=== PATIENT | female | born 1980 | race Caucasian/White ===

== ENCOUNTER 2019-04-15 14:33 | Emergency (ER) | payer OTHER, MEDICAID, SELFPAY ==
[2019-04-15 14:41] VITALS: BP 169/78; PULSE 110; RESP 18; TEMP 36; O2SAT 100; BMI 41.9
--- NOTE | 2019-04-15 14:49 | ED.ABDPAIN ---
HPI - Abdominal Pain <Brenda Roa PA-C - Last Filed: 04/15/19 21:19> General Chief Complaint: Abdominal Pain Stated Complaint: pain upper right abdomen Time Seen by Provider: 04/15/19 14:49 Source: patient Mode of arrival: ambulatory Limitations: no limitations History of Present Illness HPI narrative: This 39-year-old female comes to ED secondary to worsening right upper quadrant pain. She states that this started about 10 days ago. Pain is worse with any kind of food, even bland diet. She states that she can tolerate water and fluids. She states that pain especially worse after greasy or fatty foods or spicy foods, somewhat better on an empty stomach, no exacerbating or alleviating features other than this. She states that pain is mainly in the white upper quadrant but can feel it a little bit in the mid abdomen and flank area as well. She states she has had nausea, no vomiting in the last couple of days. She denies any new symptoms today such as fever, hematuria or urinary symptoms, bowel habit changes or blood in the stools. She denies chest pain or dyspnea. She has some chronic pain in the extremities and states that her left knee red swollen recently. She was seen at another local emergency department a week ago and states she had lab work and ultrasound which showed gallstones and inflammation and was told she probably needs surgery and to return if acutely worse. She has not been able to see her PCP who moved out of the area and decided to come to this ED today. Related Data Home Medications Medication Instructions Recorded Confirmed hydrocodone-acetaminophen 04/15/19 naproxen 375 mg PO BID 04/15/19 04/15/19 ondansetron 04/15/19 Previous Rx's Medication Instructions Recorded ondansetron 4 mg PO Q8HR PRN #7 tab 04/15/19 Allergies Allergy/AdvReac Type Severity Reaction Status Date / Time mushroom [MUSHROOM] Allergy Intermediate Unverified 03/11/18 12:52 Penicillins [PENICILLINS] Allergy Intermediate Unverified 03/11/18 12:52 prednisone [PREDNISONE] Allergy Intermediate Unverified 03/11/18 12:52 sumatriptan [From IMITREX] Allergy Intermediate Unverified 03/11/18 12:52 Review of Systems <Brenda Roa PA-C - Last Filed: 05/16/19 21:19> Review of Systems ROS Unobtainable: All systems reviewed & are unremarkable except as noted in HPI and below PFSH <Brenda Roa PA-C - Last Filed: 04/15/19 21:19> Medical History (Updated 04/15/19 @ 18:31 by Brenda Roa PA-C) Chronic upper extremity pain (Chronic) Chronic pain of lower extremity, bilateral (Chronic) Surgical History (Updated 04/15/19 @ 15:40 by Brenda Roa PA-C) No history of previous surgery (Chronic) Social History Smoking Status: Current every day smoker Social History Smoking Status: Current every day smoker Exam <Brenda Roa PA-C - Last Filed: 04/15/19 21:19> Narrative Exam Narrative: GENERAL APPEARANCE: Patient sitting comfortably, in no distress. HEENT: PERRL, EOMI, no scleral icterus NECK: Supple LUNGS: Clear to auscultation bilaterally. HEART: Rate and rhythm regular, normal S1 and S2, no S3 or S4. ABDOMEN: Soft, nondistended, bowel sounds present x 4 quadrants, no masses palpable, no hepatosplenomegaly. Exquisite right upper quadrant tenderness with positive Gonzalez sign, no guarding or rebound. Mild right midline tenderness and right CVAT, minimal tenderness elsewhere through the abdomen. EXTREMITIES: No edema, no calf tenderness DERMATOLOGIC: No jaundice or exanthem NEUROLOGIC: Alert and oriented with normal speech and coordination Initial Vital Signs Initial Vital Signs: Vital Signs Temperature 96.8 F L 04/15/19 14:41 Pulse Rate 110 H 04/15/19 14:41 Respiratory Rate 18 04/15/19 14:41 Blood Pressure 169/78 H 04/15/19 14:41 Pulse Oximetry 100 04/15/19 14:41 <Elayne Pascual DO - Last Filed: 04/16/19 08:31> Initial Vital Signs Initial Vital Signs: Vital Signs Temperature 96.8 F L 04/15/19 14:41 Pulse Rate 110 H 04/15/19 14:41 Respiratory Rate 18 04/15/19 14:41 Blood Pressure 169/78 H 04/15/19 14:41 Pulse Oximetry 100 04/15/19 14:41 Course <Brenda Roa PA-C - Last Filed: 04/15/19 21:19> Additional Information: There are no acute findings on patient's lab work, ultrasound or CT to explain symptoms. I later received records from [facility] which not show acute findings on ultrasound or lab, still advised further workup and for gallbladder disease. Advised patient given her description of symptoms, I agree with this plan. Advised follow-up with PCP for further workup and referral, and she has agreed well. Advised return if acutely worsening symptoms again. Advised on diet. She did request a sandwich before she left, and again advised on brat diet and to avoid fatty foods. Orders Ordered: Discontinued Medications Sodium Chloride (Normal Saline 0.9%) 500 mls @ 1,000 mls/hr IV BOLUS ONE Stop: 04/15/19 15:32 Last Infusion: 04/15/19 16:02 Dose: 0 mls/hr Admin: 04/15/19 15:11 Dose: 1,000 mls/hr Ketorolac Tromethamine (Toradol) 30 mg IV NOW ONE Stop: 04/15/19 15:04 Last Admin: 04/15/19 15:12 Dose: 30 mg Ondansetron HCl (Zofran) 4 mg IV NOW ONE Stop: 04/15/19 15:04 Last Admin: 04/15/19 15:12 Dose: 4 mg Pantoprazole Sodium (Protonix) 40 mg IV NOW ONE Stop: 04/15/19 15:04 Last Admin: 04/15/19 15:12 Dose: 40 mg Vital Signs - 8 hr 04/15/19 14:41 04/15/19 18:28 Temperature 96.8 F L Pulse Rate 110 H 94 H Respiratory Rate 18 16 Blood Pressure 169/78 H Blood Pressure [Left Arm] 134/73 Pulse Oximetry 100 98 <Elayne Pascual DO - Last Filed: 04/16/19 08:31> Orders Ordered: Discontinued Medications Sodium Chloride (Normal Saline 0.9%) 500 mls @ 1,000 mls/hr IV BOLUS ONE Stop: 04/15/19 15:32 Last Infusion: 04/15/19 16:02 Dose: 0 mls/hr Admin: 04/15/19 15:11 Dose: 1,000 mls/hr Ketorolac Tromethamine (Toradol) 30 mg IV NOW ONE Stop: 04/15/19 15:04 Last Admin: 04/15/19 15:12 Dose: 30 mg Ondansetron HCl (Zofran) 4 mg IV NOW ONE Stop: 04/15/19 15:04 Last Admin: 04/15/19 15:12 Dose: 4 mg Pantoprazole Sodium (Protonix) 40 mg IV NOW ONE Stop: 04/15/19 15:04 Last Admin: 04/15/19 15:12 Dose: 40 mg Vital Signs - 8 hr 04/15/19 14:41 04/15/19 18:28 Temperature 96.8 F L Pulse Rate 110 H 94 H Respiratory Rate 18 16 Blood Pressure 169/78 H Blood Pressure [Left Arm] 134/73 Pulse Oximetry 100 98 MDM - Abdominal Pain <Brenda Roa PA-C - Last Filed: 04/15/19 21:19> Medical Records Attestation: I reviewed the patient's medical records. Lab Data Attestation: I reviewed the patient's lab results. Result diagrams: 04/15/19 15:27 04/15/19 15:27 Lab Results 04/15/19 04/15/19 Range/Units 15:27 15:27 WBC 7.2 (4.5-11.0) X10^3/uL RBC 5.08 (4.0-5.2) X10^6/uL Hgb 10.3 L (12.0-16.0) g/dL Hct 33.5 L (36-46) % MCV 66.0 L (80-100) fL MCH 20.2 L (26-34) PG MCHC 30.6 (30-36) % RDW 17.9 H (11.6-14.8) % Plt Count 355 (150-400) X10^3/uL Neut % (Auto) 63.0 (50-75) % Lymph % (Auto) 27.0 (25-40) % [place] % (Auto) 5.5 (3-14) % Eos % (Auto) 3.4 (2-4) % Baso % (Auto) 1.1 (0-2) % Neut # (Auto) 4500 (8987-3901) /uL Lymph # (Auto) 1900 (9440-6149) /uL [place] # (Auto) 400 (0-900) /uL Eos # (Auto) 200 (0-450) /uL Baso # (Auto) 100 (0-100) /uL RBC Morphology Not Reportable Hypochromasia 1+ H Microcytosis 2+ H Sodium 136 L (137-145) mmol/L Potassium 3.7 (3.4-5.1) mmol/L Chloride 100 (98-107) mmol/L Carbon Dioxide 23 (22-32) mmol/L BUN 10 (7-17) mg/dL Creatinine 0.60 (0.52-1.04) mg/dL Estimated GFR > 60.0 (>60) mL/min BUN/Creatinine Ratio 16.7 (6-22) Glucose 108 H (70-100) mg/dL Calcium 8.9 (8.4-10.2) mg/dL Total Bilirubin 0.3 (0.2-1.3) mg/dL AST 21 (14-36) IU/L ALT 29 (9-52) IU/L Alkaline Phosphatase 107 (38-126) U/L Total Protein 7.6 (6.3-8.2) g/dL Albumin 4.0 (3.5-5.0) g/dL Globulin 3.6 (1.7-4.1) g/dL Albumin/Globulin Ratio 1.1 (1.0-2.8) Lipase 36 (23-300) U/L Point of care testing: Point of Care Testing Test Results Negative Urine Dip Bedside Urine Glucose Negative Bedside Urine Bilirubin - Negative Bedside Urine Ketone - Negative Urine Specific [place] 1.015 Bedside Urine Occult Blood - Negative Bedside Urine pH 6.5 Bedside Urine Protein - Negative Bedside Urine Urobilinogen - Negative Bedside Urine Nitrite - Negative Bedside Urine Leukocytes - Negative Esterase Imaging Data US - abdomen: Radiologist's impression: [place] [address] Ultrasound Report Signed Patient: Tavia Oneal EMR#: [id number] : 1980Acct:[id number] Age/Sex: 39 / FDate of Service: 04/15/19 Loc: ED Accession Number: [id number] Procedure: US abdomen limited Ordering Provider: Brenda Roa P.A-C PROCEDURE: US ABDOMEN LIMITED INDICATIONS: GALLSTONES, RUQ PAIN, WORSENING TECHNIQUE: Real-time focused scanning was performed of the abdomen, with image documentation. COMPARISON: None. FINDINGS: Liver measures 19.4 cm in length. Increased liver parenchymal echotexture is seen. No discrete hepatic lesion is noted. There is no gallstone. No gallbladder wall thickening or pericholecystic fluid. No sonographic Gonzalez sign. There is no biliary ductal dilatation. Common bile duct measures 4.7 mm in diameter and is within normal limits. The visualized portion of pancreas shows no gross ovale. IMPRESSION: Hepatic steatosis. No discrete hepatic lesion. No gallstone. No sonographic evidence of acute cholecystitis. No biliary ductal dilatation. The Dictated by: Devan Huff M.D. on 04/15/2019 at 16:22 Approved by: Devan Huff M.D. on 04/15/2019 at 16:23 CT scan - abdomen: Radiologist's impression: [place] [address] CT Scan Report Signed Patient: Tavia Oneal EMR#: [id number] : 1980Acct:[id number] Age/Sex: 39 / FDate of Service: 04/15/19 Loc: ED Accession Number: [id number] Procedure: CT abdomen pelvis w con Ordering Provider: Brenda Roa P.A-C PROCEDURE: CT ABDOMEN PELVIS W CON INDICATIONS: R. UQ Post prandial pain, nl US TECHNIQUE: After the administration of intravenous contrast, 5 mm thick sections acquired from the diaphragm to the symphysis. 5 mm coronal and sagittal reformats were acquired. For radiation dose reduction, the following was used: automated exposure control, adjustment of mA and/or kV according to patient size. COMPARISON: None. FINDINGS: Image quality: Excellent. ABDOMEN: Lung bases: Lung bases are clear. Heart size is normal. Solid organs: Liver is normal in size and enhancement. Extensive hepatic steatosis is seen, no discrete lesion. Gallbladder is within normal limits. Biliary system is non dilated. Pancreas enhances normally. Spleen is normal in size and enhancement. No adrenal nodules. Kidneys demonstrate normal size and enhancement, without hydronephrosis. 5 x 2 mm nonobstructing stone in the midpole of the left kidney is seen. Peritoneum and bowel: Bowel loops demonstrate normal wall thickness and caliber. No free fluid or air. Extensive colonic diverticulosis is seen, no CT evidence of acute diverticulitis. Nodes and vessels: Mildly prominent retroperitoneal lymph nodes are seen measures up to 1 cm in short axis diameter a left periaortic space. Borderline prominent in lymph nodes along bilateral iliac chain are also seen and measures up to 1.4 cm in short axis diameter anterior to right external iliac artery. Aorta and inferior vena cava are normal in size. Miscellaneous: No ventral hernias. PELVIS: Genitourinary: Questionable diffuse bladder wall thickening is seen. No discrete bladder wall mass. Miscellaneous: No inguinal hernias or adenopathy. Subcentimeter lymph nodes are seen in bilateral inguinal region measures up to 6 mm in short axis diameter. Bones: No suspicious bony lesions. No vertebral body compression fractures. IMPRESSION: 1. Hepatic steatosis. No discrete hepatic lesion. 2. Nonobstructing stone in left kidney. No hydronephrosis. 3. No bowel obstruction. No free fluid or free air. Colonic diverticulosis with no CT evidence of acute diverticulitis. 4. Nonspecific mildly enlarged periaortic lymph nodes and bilateral iliac chain nodes. Dictated by: Devan Huff M.D. on 04/15/2019 at 17:35 Approved by: Devan Huff M.D. on 04/15/2019 at 17:42 <Elayne Pascual DO - Last Filed: 04/16/19 08:31> Lab Data Attestation: I reviewed the patient's lab results. Lab Results 04/15/19 04/15/19 Range/Units 15:27 15:27 WBC 7.2 (4.5-11.0) X10^3/uL RBC 5.08 (4.0-5.2) X10^6/uL Hgb 10.3 L (12.0-16.0) g/dL Hct 33.5 L (36-46) % MCV 66.0 L (80-100) fL MCH 20.2 L (26-34) PG MCHC 30.6 (30-36) % RDW 17.9 H (11.6-14.8) % Plt Count 355 (150-400) X10^3/uL Neut % (Auto) 63.0 (50-75) % Lymph % (Auto) 27.0 (25-40) % [place] % (Auto) 5.5 (3-14) % Eos % (Auto) 3.4 (2-4) % Baso % (Auto) 1.1 (0-2) % Neut # (Auto) 4500 (1916-1634) /uL Lymph # (Auto) 1900 (5650-9496) /uL [place] # (Auto) 400 (0-900) /uL Eos # (Auto) 200 (0-450) /uL Baso # (Auto) 100 (0-100) /uL RBC Morphology Not Reportable Hypochromasia 1+ H Microcytosis 2+ H Sodium 136 L (137-145) mmol/L Potassium 3.7 (3.4-5.1) mmol/L Chloride 100 (98-107) mmol/L Carbon Dioxide 23 (22-32) mmol/L BUN 10 (7-17) mg/dL Creatinine 0.60 (0.52-1.04) mg/dL Estimated GFR > 60.0 (>60) mL/min BUN/Creatinine Ratio 16.7 (6-22) Glucose 108 H (70-100) mg/dL Calcium 8.9 (8.4-10.2) mg/dL Total Bilirubin 0.3 (0.2-1.3) mg/dL AST 21 (14-36) IU/L ALT 29 (9-52) IU/L Alkaline Phosphatase 107 (38-126) U/L Total Protein 7.6 (6.3-8.2) g/dL Albumin 4.0 (3.5-5.0) g/dL Globulin 3.6 (1.7-4.1) g/dL Albumin/Globulin Ratio 1.1 (1.0-2.8) Lipase 36 (23-300) U/L Point of care testing: Point of Care Testing Test Results Negative Urine Dip Bedside Urine Glucose Negative Bedside Urine Bilirubin - Negative Bedside Urine Ketone - Negative Urine Specific [place] 1.015 Bedside Urine Occult Blood - Negative Bedside Urine pH 6.5 Bedside Urine Protein - Negative Bedside Urine Urobilinogen - Negative Bedside Urine Nitrite - Negative Bedside Urine Leukocytes - Negative Esterase Discharge Plan Departure Patient Disposition: Home Clinical Impression: Abdominal pain Qualifiers: Abdominal location: right upper quadrant Qualified Code(s): R10.11 - Right upper quadrant pain Discharge Date/Time: 04/15/19 18:40 Interventions: ED Discharge Assessment Last Done: 04/15/19 18:39 Instructions: DI for Abdominal Pain-Adult Activity Restrictions/Additional Instructions: Please return to the closest ED if you have any acutely worsening symptoms again as we talked about. Your lab work and radiology studies did not show any acute findings today. Otherwise, please take [id number] pain medicine as needed, take the antinausea medicine that you have been on as you need (I have given you a prescription for a little bit more if you need to fill it). Drink clear fluids, and remember to eat small amounts of bland food frequently to help with the nausea. Try bananas, applesauce, steamed white rice. Call your PCP office tomorrow for follow-up in let them know you have been seen in the ED twice and requested you be seen for follow-up tomorrow for abdominal pain as you may need referral to a specialist for more definitive testing. Prescriptions: New ondansetron 4 mg tablet,disintegrating 4 mg PO Q8HR PRN (Reason: nausea and vomiting) Qty: 7 RF: 0 No Action hydrocodone-acetaminophen 5-325 mg tablet RF: 0 naproxen 375 mg tablet 375 mg PO BID RF: 0 ondansetron 4 mg tablet,disintegrating RF: 0 Referrals: [facility], Don Chung [Other] <Elayen Pascual DO - Last Filed: 04/16/19 08:31> [facility] ED Attending Jack[place] Attestation: I was immediately available in the department for consultation. Documentation has been reviewed. I agree with assessment and plan.
--- NOTE | 2019-04-15 15:04 | DI.US.S_ITS ---
PROCEDURE: US ABDOMEN LIMITED INDICATIONS: GALLSTONES, RUQ PAIN, WORSENING TECHNIQUE: Real-time focused scanning was performed of the abdomen, with image documentation. COMPARISON: None. FINDINGS: Liver measures 19.4 cm in length. Increased liver parenchymal echotexture is seen. No discrete hepatic lesion is noted. There is no gallstone. No gallbladder wall thickening or pericholecystic fluid. No sonographic Gonzalez sign. There is no biliary ductal dilatation. Common bile duct measures 4.7 mm in diameter and is within normal limits. The visualized portion of pancreas shows no gross ovale. IMPRESSION: Hepatic steatosis. No discrete hepatic lesion. No gallstone. No sonographic evidence of acute cholecystitis. No biliary ductal dilatation. The Dictated by: Devan Huff M.D. on 04/15/2019 at 16:22 Approved by: Devan Huff M.D. on 04/15/2019 at 16:23
[2019-04-15] MEDS: SODIUM CHLORIDE 0.9% 500 ML 1000 ML IV (15:11)
[2019-04-15] MEDS: ONDANSETRON 4 MG/2 ML INJ IV (15:12)
[2019-04-15] MEDS: KETOROLAC 60 MG/2 ML VIAL 30 MG IV (15:12)
[2019-04-15] MEDS: PANTOPRAZOLE 40 MG VIAL IV (15:12)
--- NOTE | 2019-04-15 15:12 | ED_ITS ---
HPI - Abdominal Pain <Brenda Roa PA-C - Last Filed: 04/15/19 21:19> General Chief Complaint: Abdominal Pain Stated Complaint: pain upper right abdomen Time Seen by Provider: 04/15/19 14:49 Source: patient Mode of arrival: ambulatory Limitations: no limitations History of Present Illness HPI narrative: This 39-year-old female comes to ED secondary to worsening right upper quadrant pain. She states that this started about 10 days ago. Pain is worse with any kind of food, even bland diet. She states that she can tolerate water and fluids. She states that pain especially worse after greasy or fatty foods or spicy foods, somewhat better on an empty stomach, no exacerbating or al leviating features other than this. She states that pain is mainly in the white upper quadrant but can feel it a little bit in the mid abdomen and flank area as well. She states she has had nausea, no vomiting in the last couple of days. She denies any new symptoms today such as fever, hematuria or urinary symptoms, bowel habit changes or blood in the stools. She denies chest pain or dyspnea. She has some chronic pain in the extremities and states that her left knee red swollen recently. She was seen at another local emergency department a week ago and states she had lab work and ultrasound which showed gallstones and inflammation and was told she probably needs surgery and to return if acutely worse. She has not been able to see her PCP who moved out of the area and decided to come to this ED today. Related Data Home Medications Medication Instructions Recorded Confirmed hydrocodone-acetaminophen 04/15/19 naproxen 375 mg PO BID 04/15/19 04/15/19 ondansetron 04/15/19 Previous Rx's Medication Instructions Recorded ondansetron 4 mg PO Q8HR PRN #7 tab 04/15/19 Allergies Allergy/AdvReac Type Severity Reaction Status Date / Time mushroom [MUSHROOM] Allergy Intermediate Unverified 03/11/18 12:52 Penicillins [PENICILLINS] Allergy Intermediate Unverified 03/11/18 12:52 prednisone [PREDNISONE] Allergy Intermediate Unverified 03/11/18 12:52 sumatriptan [From IMITREX] Allergy Intermediate Unverified 03/11/18 12:52 Review of Systems <Brenda Roa PA-C - Last Filed: 04/15/19 21:19> Review of Systems ROS Unobtainable: All systems reviewed & are unremarkable except as noted in HPI and below PFSH <Brenda Roa PA-C - Last Filed: 04/15/19 21:19> Medical History (Updated 04/15/19 @ 18:31 by Brenda Roa PA-C) Chronic upper extremity pain (Chronic) Chronic pain of lower extremity, bilateral (Chronic) Surgical History (Updated 04/15/19 @ 15:40 by Brenda Roa PA-C) No history of previous surgery (Chronic) Social History Smoking Status: Current every day smoker Social History Smoking Status: Current every day smoker Exam <Brenda Roa PA-C - Last Filed: 04/15/19 21:19> Narrative Exam Narrative: GENERAL APPEARANCE: Patient sitting comfortably, in no distress. HEENT: PERRL, EOMI, no scleral icterus NECK: Supple LUNGS: Clear to auscultation bilaterally. HEART: Rate and rhythm regular, normal S1 and S2, no S3 or S4. ABDOMEN: Soft, nondistended, bowel sounds present x 4 quadrants, no masses palpable, no hepatosplenomegaly. Exquisite right upper quadrant tenderness with positive Gonzalez sign, no guarding or rebound. Mild right midline tenderness and right CVAT, minimal tenderness elsewhere through the abdomen. EXTREMITIES: No edema, no calf tenderness DERMATOLOGIC: No jaundice or exanthem NEUROLOGIC: Alert and oriented with normal speech and coordination Initial Vital Signs Initial Vital Signs: Vital Signs Temperature 96.8 F L 04/15/19 14:41 Pulse Rate 110 H 04/15/19 14:41 Respiratory Rate 18 04/15/19 14:41 Blood Pressure 169/78 H 04/15/19 14:41 Pulse Oximetry 100 04/15/19 14:41 <Elayne Pascual DO - Last Filed: 04/16/19 08:31> Initial Vital Signs Initial Vital Signs: Vital Signs Temperature 96.8 F L 04/15/19 14:41 Pulse Rate 110 H 04/15/19 14:41 Respiratory Rate 18 04/15/19 14:41 Blood Pressure 169/78 H 04/15/19 14:41 Pulse Oximetry 100 04/15/19 14:41 Course <Brenda Roa PA-C - Last Filed: 04/15/19 21:19> Additional Information: There are no acute findings on patient's lab work, ultrasound or CT to explain symptoms. I later received records from [facility] which not show acute findings on ultrasound or lab, still advised further workup and for gallbladder disease. Advised patient given her description of symptoms, I agree with this plan. Advised follow-up with PCP for further workup and referral, and she has agreed well. Advised return if acutely worsening symptoms again. Advised on diet. She did request a sandwich before she left, and again advised on brat diet and to avoid fatty foods. Orders Ordered: Discontinued Medications Sodium Chloride (Normal Saline 0.9%) 500 mls @ 1,000 mls/hr IV BOLUS ONE Stop: 04/15/19 15:32 Last Infusion: 04/15/19 16:02 Dose: 0 mls/hr Admin: 04/15/19 15:11 Dose: 1,000 mls/hr Ketorolac Tromethamine (Toradol) 30 mg IV NOW ONE Stop: 04/15/19 15:04 Last Admin: 04/15/19 15:12 Dose: 30 mg Ondansetron HCl (Zofran) 4 mg IV NOW ONE Stop: 04/15/19 15:04 Last Admin: 04/15/19 15:12 Dose: 4 mg Pantoprazole Sodium (Protonix) 40 mg IV NOW ONE Stop: 04/15/19 15:04 Last Admin: 04/15/19 15:12 Dose: 40 mg Vital Signs - 8 hr 04/15/19 14:41 04/15/19 18:28 Temperature 96.8 F L Pulse Rate 110 H 94 H Respiratory Rate 18 16 Blood Pressure 169/78 H Blood Pressure [Left Arm] 134/73 Pulse Oximetry 100 98 <Elayne Pascual DO - Last Filed: 04/16/19 08:31> Orders Ordered: Discontinued Medications Sodium Chloride (Normal Saline 0.9%) 500 mls @ 1,000 mls/hr IV BOLUS ONE Stop: 04/15/19 15:32 Last Infusion: 04/15/19 16:02 Dose: 0 mls/hr Admin: 04/15/19 15:11 Dose: 1,000 mls/hr Ketorolac Tromethamine (Toradol) 30 mg IV NOW ONE Stop: 04/15/19 15:04 Last Admin: 04/15/19 15:12 Dose: 30 mg Ondansetron HCl (Zofran) 4 mg IV NOW ONE Stop: 04/15/19 15:04 Last Admin: 04/15/19 15:12 Dose: 4 mg Pantoprazole Sodium (Protonix) 40 mg IV NOW ONE Stop: 04/15/19 15:04 Last Admin: 04/15/19 15:12 Dose: 40 mg Vital Signs - 8 hr 04/15/19 14:41 04/15/19 18:28 Temperature 96.8 F L Pulse Rate 110 H 94 H Respiratory Rate 18 16 Blood Pressure 169/78 H Blood Pressure [Left Arm] 134/73 Pulse Oximetry 100 98 MDM - Abdominal Pain <Brenda Roa PA-C - Last Filed: 04/15/19 21:19> Medical Records Attestation: I reviewed the patient's medical records. Lab Data Attestation: I reviewed the patient's lab results. Result diagrams: 04/15/19 15:27 04/15/19 15:27 Lab Results 04/15/19 04/15/19 Range/Units 15:27 15:27 WBC 7.2 (4.5-11.0) X10^3/uL RBC 5.08 (4.0-5.2) X10^6/uL Hgb 10.3 L (12.0-16.0) g/dL Hct 33.5 L (36-46) % MCV 66.0 L (80-100) fL MCH 20.2 L (26-34) PG MCHC 30.6 (30-36) % RDW 17.9 H (11.6-14.8) % Plt Count 355 (150-400) X10^3/uL Neut % (Auto) 63.0 (50-75) % Lymph % (Auto) 27.0 (25-40) % [place] % (Auto) 5.5 (3-14) % Eos % (Auto) 3.4 (2-4) % Baso % (Auto) 1.1 (0-2) % Neut # (Auto) 4500 (5798-4919) /uL Lymph # (Auto) 1900 (3370-8848) /uL [place] # (Auto) 400 (0-900) /uL Eos # (Auto) 200 (0-450) /uL Baso # (Auto) 100 (0-100) /uL RBC Morphology Not Reportable Hypochromasia 1+ H Microcytosis 2+ H Sodium 136 L (137-145) mmol/L Potassium 3.7 (3.4-5.1) mmol/L Chloride 100 (98-107) mmol/L Carbon Dioxide 23 (22-32) mmol/L BUN 10 (7-17) mg/dL Creatinine 0.60 (0.52-1.04) mg/dL Estimated GFR > 60.0 (>60) mL/min BUN/Creatinine Ratio 16.7 (6-22) Glucose 108 H (70-100) mg/dL Calcium 8.9 (8.4-10.2) mg/dL Total Bilirubin 0.3 (0.2-1.3) mg/dL AST 21 (14-36) IU/L ALT 29 (9-52) IU/L Alkaline Phosphatase 107 (38-126) U/L Total Protein 7.6 (6.3-8.2) g/dL Albumin 4.0 (3.5-5.0) g/dL Globulin 3.6 (1.7-4.1) g/dL Albumin/Globulin Ratio 1.1 (1.0-2.8) Lipase 36 (23-300) U/L Point of care testing: Point of Care Testing Test Results Negative Urine Dip Bedside Urine Glucose Negative Bedside Urine Bilirubin - Negative Bedside Urine Ketone - Negative Urine Specific [place] 1.015 Bedside Urine Occult Blood - Negative Bedside Urine pH 6.5 Bedside Urine Protein - Negative Bedside Urine Urobilinogen - Negative Bedside Urine Nitrite - Negative Bedside Urine Leukocytes - Negative Esterase Imaging Data US - abdomen: Radiologist's impression: [address] [address] Ultrasound Report Signed Patient: Tavia Oneal EMR#: [id number] : 1980Acct:[id number] Age/Sex: 39 / FDate of Service: 04/15/19 Loc: ED Accession Number: [id number] Procedure: US abdomen limited Ordering Provider: Brenda Roa P.A-C PROCEDURE: US ABDOMEN LIMITED INDICATIONS: GALLSTONES, RUQ PAIN, WORSENING TECHNIQUE: Real-time focused scanning was performed of the abdomen, with image documentation. COMPARISON: None. FINDINGS: Liver measures 19.4 cm in length. Increased liver parenchymal echotexture is seen. No discrete hepatic lesion is noted. There is no gallstone. No gallbladder wall thickening or pericholecystic fluid. No sonographic Gonzalez sign. There is no biliary ductal dilatation. Common bile duct measures 4.7 mm in diameter and is within normal limits. The visualized portion of pancreas shows no gross ovale. IMPRESSION: Hepatic steatosis. No discrete hepatic lesion. No gallstone. No sonographic evidence of acute cholecystitis. No biliary ductal dilatation. The Dictated by: Devan Huff M.D. on 04/15/2019 at 16:22 Approved by: Devan Huff M.D. on 04/15/2019 at 16:23 CT scan - abdomen: Radiologist's impression: [place] [address] CT Scan Report Signed Patient: Tavia Oneal EMR#: [id number] : 1980Acct:[id number] Age/Sex: 39 / FDate of Service: 04/15/19 Loc: ED Accession Number: [id number] Procedure: CT abdomen pelvis w con Ordering Provider: Brenda Roa P.A-C PROCEDURE: CT ABDOMEN PELVIS W CON INDICATIONS: R. UQ Post prandial pain, nl US TECHNIQUE: After the administration of intravenous contrast, 5 mm thick sections acquired from the diaphragm to the symphysis. 5 mm coronal and sagittal reformats were acquired. For radiation dose reduction, the following was used: automated exposure control, adjustment of mA and/or kV according to patient size. COMPARISON: None. FINDINGS: Image quality: Excellent. ABDOMEN: Lung bases: Lung bases are clear. Heart size is normal. Solid organs: Liver is normal in size and enhancement. Extensive hepatic steatosis is seen, no discrete lesion. Gallbladder is within normal limits. Biliary system is non dilated. Pancreas enhances normally. Spleen is normal in size and enhancement. No adrenal nodules. Kidneys demonstrate normal size and enhancement, without hydronephrosis. 5 x 2 mm nonobstructing stone in the midpole of the left kidney is seen. Peritoneum and bowel: Bowel loops demonstrate normal wall thickness and caliber. No free fluid or air. Extensive colonic diverticulosis is seen, no CT evidence of acute diverticulitis. Nodes and vessels: Mildly prominent retroperitoneal lymph nodes are seen stacy sures up to 1 cm in short axis diameter a left periaortic space. Borderline prominent in lymph nodes along bilateral iliac chain are also seen and measures up to 1.4 cm in short axis diameter anterior to right external iliac artery. Aorta and inferior vena cava are normal in size. Miscellaneous: No ventral hernias. PELVIS: Genitourinary: Questionable diffuse bladder wall thickening is seen. No discrete bladder wall mass. Miscellaneous: No inguinal hernias or adenopathy. Subcentimeter lymph nodes are seen in bilateral inguinal region measures up to 6 mm in short axis diameter. Bones: No suspicious bony lesions. No vertebral body compression fractures. IMPRESSION: 1. Hepatic steatosis. No discrete hepatic lesion. 2. Nonobstructing stone in left kidney. No hydronephrosis. 3. No bowel obstruction. No free fluid or free air. Colonic diverticulosis with no CT evidence of acute diverticulitis. 4. Nonspecific mildly enlarged periaortic lymph nodes and bilateral iliac chain nodes. Dictated by: Devan Huff M.D. on 04/15/2019 at 17:35 Approved by: Devan Huff M.D. on 04/15/2019 at 17:42 <Elayne Pascual DO - Last Filed: 04/16/19 08:31> Lab Data Attestation: I reviewed the patient's lab results. Lab Results 04/15/19 04/15/19 Range/Units 15:27 15:27 WBC 7.2 (4.5-11.0) X10^3/uL RBC 5.08 (4.0-5.2) X10^6/uL Hgb 10.3 L (12.0-16.0) g/dL Hct 33.5 L (36-46) % MCV 66.0 L (80-100) fL MCH 20.2 L (26-34) PG MCHC 30.6 (30-36) % RDW 17.9 H (11.6-14.8) % Plt Count 355 (150-400) X10^3/uL Neut % (Auto) 63.0 (50-75) % Lymph % (Auto) 27.0 (25-40) % [place] % (Auto) 5.5 (3-14) % Eos % (Auto) 3.4 (2-4) % Baso % (Auto) 1.1 (0-2) % Neut # (Auto) 4500 (0819-0262) /uL Lymph # (Auto) 1900 (2334-8197) /uL [place] # (Auto) 400 (0-900) /uL Eos # (Auto) 200 (0-450) /uL Baso # (Auto) 100 (0-100) /uL RBC Morphology Not Reportable Hypochromasia 1+ H Microcytosis 2+ H Sodium 136 L (137-145) mmol/L Potassium 3.7 (3.4-5.1) mmol/L Chloride 100 (98-107) mmol/L Carbon Dioxide 23 (22-32) mmol/L BUN 10 (7-17) mg/dL Creatinine 0.60 (0.52-1.04) mg/dL Estimated GFR > 60.0 (>60) mL/min BUN/Creatinine Ratio 16.7 (6-22) Glucose 108 H (70-100) mg/dL Calcium 8.9 (8.4-10.2) mg/dL Total Bilirubin 0.3 (0.2-1.3) mg/dL AST 21 (14-36) IU/L ALT 29 (9-52) IU/L Alkaline Phosphatase 107 (38-126) U/L Total Protein 7.6 (6.3-8.2) g/dL Albumin 4.0 (3.5-5.0) g/dL Globulin 3.6 (1.7-4.1) g/dL Albumin/Globulin Ratio 1.1 (1.0-2.8) Lipase 36 (23-300) U/L Point of care testing: Point of Care Testing Test Results Negative Urine Dip Bedside Urine Glucose Negative Bedside Urine Bilirubin - Negative Bedside Urine Ketone - Negative Urine Specific [place] 1.015 Bedside Urine Occult Blood - Negative Bedside Urine pH 6.5 Bedside Urine Protein - Negative Bedside Urine Urobilinogen - Negative Bedside Urine Nitrite - Negative Bedside Urine Leukocytes - Negative Esterase Discharge Plan Departure Patient Disposition: Home Clinical Impression: Abdominal pain Qualifiers: Abdominal location: right upper quadrant Qualified Code(s): R10.11 - Right upper quadrant pain Discharge Date/Time: 04/15/19 18:40 Interventions: ED Discharge Assessment Last Done: 04/15/19 18:39 Instructions: DI for Abdominal Pain-Adult Activity Restrictions/Additional Instructions: Please return to the closest ED if you have any acutely worsening symptoms again as we talked about. Your lab work and radiology studies did not show any acute findings today. Otherwise, please take [id number] pain medicine as needed, take the antinausea medicine that you have been on as you need (I have given you a prescription for a little bit more if you need to fill it). Drink clear fluids, and remember to eat small amounts of bland food frequently to help with the nausea. Try bananas, applesauce, steamed white rice. Call your PCP office tomorrow for follow-up in let them know you have been seen in the ED twice and requested you be seen for follow-up tomorrow for abdominal pain as you may need referral to a specialist for more definitive testing. Prescriptions: New ondansetron 4 mg tablet,disintegrating 4 mg PO Q8HR PRN (Reason: nausea and vomiting) Qty: 7 RF: 0 No Action hydrocodone-acetaminophen 5-325 mg tablet RF: 0 naproxen 375 mg tablet 375 mg PO BID RF: 0 ondansetron 4 mg tablet,disintegrating RF: 0 [facility] [Other] <Elayne Pascual, - Last Filed: 04/16/19 08:31> Cosign ED Attending Jackature Attestation: I was immediately available in the department for consultation. Documentation has been reviewed. I agree with assessment and plan.
[2019-04-15 15:29] LABS: Add Manual Diff / Slide Review NO; Basophils Absolute Auto 100 /uL (0-100); Basophils Percent Auto 1.1 % (0-2); Eosinophils Absolute Auto 200 /uL (0-450); Eosinophils Percent Auto 3.4 % (2-4); Hematocrit 33.5 % (36-46); Hemoglobin 10.3 g/dL (12.0-16.0); Lymphocytes Absolute Auto 1900 /uL (1100-4500); Mean Corpuscular HGB Conc 30.6 % (30-36); Mean Corpuscular Hemoglobin 20.2 PG (26-34); Monocytes Absolute Auto 400 /uL (0-900); Monocytes Percent Auto 5.5 % (3-14); Neutrophils Absolute Auto 4500 /uL (1500-7000); Platelet Count 355 X10^3/uL (150-400); Red Blood Cell Count 5.08 X10^6/uL (4.0-5.2); Red Cell Distribution Width 17.9 % (11.6-14.8); White Blood Cell Count 7.2 X10^3/uL (4.5-11.0)
[2019-04-15 15:41] LABS: Alanine Aminotransferase 29 IU/L (9-52); Albumin Globulin Ratio 1.1 (1.0-2.8); Alkaline Phosphatase 107 U/L (38-126); Aspartate Aminotransferase 21 IU/L (14-36); BUN Creatinine Ratio 16.7 (6-22); Bilirubin Total 0.3 mg/dL (0.2-1.3); Blood Urea Nitrogen 10 mg/dL (7-17); Calcium 8.9 mg/dL (8.4-10.2); Carbon Dioxide 23 mmol/L (22-32); Chloride 100 mmol/L (98-107); Estimated Glomerular Filt Rate > 60.0 mL/min (>60); Globulin 3.6 g/dL (1.7-4.1); Glucose 108 mg/dL (70-100); HEMOLYSIS < 15 (0-50); Lipase 36 U/L (23-300); Potassium 3.7 mmol/L (3.4-5.1); Sodium 136 mmol/L (137-145); Total Protein 7.6 g/dL (6.3-8.2)
[2019-04-15 15:49] LABS: Hypochromasia 1+; Microcytosis 2+
--- NOTE | 2019-04-15 17:01 | DI.CT.S_ITS ---
PROCEDURE: CT ABDOMEN PELVIS W CON INDICATIONS: R. UQ Post prandial pain, nl US TECHNIQUE: After the administration of intravenous contrast, 5 mm thick sections acquired from the diaphragm to the symphysis. 5 mm coronal and sagittal reformats were acquired. For radiation dose reduction, the following was used: automated exposure control, adjustment of mA and/or kV according to patient size. COMPARISON: None. FINDINGS: Image quality: Excellent. ABDOMEN: Lung bases: Lung bases are clear. Heart size is normal. Solid organs: Liver is normal in size and enhancement. Extensive hepatic steatosis is seen, no discrete lesion. Gallbladder is within normal limits. Biliary system is non dilated. Pancreas enhances normally. Spleen is normal in size and enhancement. No adrenal nodules. Kidneys demonstrate normal size and enhancement, without hydronephrosis. 5 x 2 mm nonobstructing stone in the midpole of the left kidney is seen. Peritoneum and bowel: Bowel loops demonstrate normal wall thickness and caliber. No free fluid or air. Extensive colonic diverticulosis is seen, no CT evidence of acute diverticulitis. Nodes and vessels: Mildly prominent retroperitoneal lymph nodes are seen measures up to 1 cm in short axis diameter a left periaortic space. Borderline prominent in lymph nodes along bilateral iliac chain are also seen and measures up to 1.4 cm in short axis diameter anterior to right external iliac artery. Aorta and inferior vena cava are normal in size. Miscellaneous: No ventral hernias. PELVIS: Genitourinary: Questionable diffuse bladder wall thickening is seen. No discrete bladder wall mass. Miscellaneous: No inguinal hernias or adenopathy. Subcentimeter lymph nodes are seen in bilateral inguinal region measures up to 6 mm in short axis diameter. Bones: No suspicious bony lesions. No vertebral body compression fractures. IMPRESSION: 1. Hepatic steatosis. No discrete hepatic lesion. 2. Nonobstructing stone in left kidney. No hydronephrosis. 3. No bowel obstruction. No free fluid or free air. Colonic diverticulosis with no CT evidence of acute diverticulitis. 4. Nonspecific mildly enlarged periaortic lymph nodes and bilateral iliac chain nodes. Dictated by: Devan Huff M.D. on 04/15/2019 at 17:35 Approved by: Devan Huff M.D. on 04/15/2019 at 17:42
[2019-04-15 18:28] VITALS: BP 134/73; PULSE 94; RESP 16; O2SAT 98
== END 2019-04-15 18:40 | disposition home or self-care (01) ==
PROVIDERS: Emergency Provider Internal Medicine
DX: R10.11 Right upper quadrant pain (principal)
CPT/HCPCS: 36591; 74177; 76705; 80053; 81003; 81025; 83690; 85025; 96361; 96374; 96375; 99283; 99284; C9113; J1885; J2405; Q9967